=== PATIENT | female | born 1955 | race Caucasian/White ===

== ENCOUNTER 2017-03-05 10:30 | Inpatient (IN) | payer BC ==
[2017-03-19] MEDS ORDERED: FAMOTIDINE 20MG TABLET PO ONE (06:00)
[2017-03-19] MEDS ORDERED: METOCLOPRAMIDE 10 MG TABLET PO ONE (06:00)
[2017-03-19] MEDS ORDERED: MECLIZINE 25 MG TABLET PO ONE (06:00)
[2017-03-19] MEDS ORDERED: VANCOMYCIN HCL 1,000 MG in 0.9 % SODIUM CHLORIDE 250ML 250 ML IVPB ONE (06:00)
[2017-03-19 08:13] LABS: ABO GROUP O; ANTIBODY SCREEN NEGATIVE (NEGATIVE); RH TYPE POSITIVE
[2017-03-19] MEDS ORDERED: 0.9 % SODIUM CHLORIDE 10 ML VIAL IVP ONE (10:02)
[2017-03-19] MEDS ORDERED: TRANEXAMIC ACID 1,000 MG/10 ML ML IV ONE (10:02)
[2017-03-19] MEDS ORDERED: TRAMADOL HCL 50 MG TABLET PO PRN (10:45)
[2017-03-19] MEDS ORDERED: ZOLPIDEM TARTRATE 5 MG TABLET PO PRN (10:45)
[2017-03-19] MEDS ORDERED: HYDROMORPHONE HCL 1MG/ML **SYRINGE IM PRN (10:45)
[2017-03-19] MEDS ORDERED: MAGNESIUM HYDROXIDE 30 ML UDC PO PRN (10:45)
[2017-03-19] MEDS ORDERED: KETOROLAC 30 MG/ML VIAL IVP PRN ×2 (10:45)
[2017-03-19] MEDS ORDERED: AL HYDROX/MAG HYDROX 30ML UD PO PRN (10:45)
[2017-03-19] MEDS ORDERED: ACETAMINOPHEN 325 MG TAB PO PRN (10:45)
[2017-03-19] MEDS ORDERED: BISACODYL 10 MG SUPP RC PRN (10:45)
[2017-03-19] MEDS ORDERED: HYDROMORPHONE HCL 2 MG/ML VIAL IM PRN (10:45)
[2017-03-19] MEDS ORDERED: NALOXONE 0.4 MG/1 ML VIAL IVP PRN (10:45)
[2017-03-19] MEDS ORDERED: OXYCODONE HCL 5 MG TABLET PO PRN (13:01)
[2017-03-19] MEDS ORDERED: *PACU ONLY* KETAMINE HCL 10 MG/ML (20ML) VIAL IV ONE (14:00)
[2017-03-19] MEDS ORDERED: KETOROLAC 30 MG/ML VIAL IVP ONE (14:00)
[2017-03-19] MEDS ORDERED: HYDROMORPHONE HCL 2 MG/ML VIAL IV ONE (14:00)
[2017-03-19] MEDS ORDERED: PROPOFOL 10 MG/ML VIAL IV ONE (14:00)
[2017-03-19] MEDS ORDERED: FENTANYL PF 100MCG/2ML VIAL IV ONE (14:00)
[2017-03-19] MEDS ORDERED: MIDAZOLAM HCL 2MG/2ML VIAL IV ONE (14:00)
[2017-03-19] MEDS: ONDANSETRON HCL IV 4 MG/2 ML VIAL IVP PRN ×2 (14:24→18:03)
--- NOTE | 2017-03-19 14:45 | Rehab Evaluation ---
Patient Information - Patient Information Diagnosis: R knee DJD Ordered Treatment: PT Evaluate and Treat Status: Initial Evaluation Date of Surgery: 03/19/17 Past Medical/Surgical Hx: PAST MEDICAL/SURGICAL HISTORY Past Surgical History T& A; myringotomy; ; SUNIL; left knee arthroscopy; jaw scope (TMJ); colonoscopy x 2. PMH - Respiratory Hx Respiratory Disorders No Hx of URI Yes: 3 weeks over it(90%) PMH - Cardiovascular Hx Cardiovascular Disorders No Exercise Tolerance Good PMH - Neuro Hx Neurological Disorders No PMH - GI Hx Gastrointestinal Disorders No Comment: Hyst 1993 PMH - Hx Genitourinary Disorders No Comment: SUNIL PMH - Endocrine Hx Endocrine Disorders No PMH - Musculoskeletal Hx Musculoskeletal Disorders Yes Hx Arthritis Yes: bilat thumbs; knees PMH - Psych Hx Psychiatric Problems No PMH - Hematology/Oncology Hx Hematology/Oncology No Disorders Premorbid Status: Detail (The patient was independent with mobility and all ADL' s prior to surgery.) Precautions: [place], Other (WBAT on the R LE.) - Time With Patient Total Time Spent With Patient (Min): 30 Treatment Procedures: Detail (Initial Evaluation, gait training) Subjective Information - Subjective Information Per Patient (The patient had no pain complaints. The patient did complain of nausea before sitting up and after walking and vomited x 2. The patient complained of "feeling funny".) Objective Data - Mental Status Patient Orientation: Oriented x3 - Visual Perception Appears within normal limits for therapeutic activities - ROM Not within normal limits (The patient's LE AROM is WNL except for right knee extension is 0, flexion was not formally measured s/p surgery.) - Strength/Tone Not within normal limits (The patient's L LE strength is 4+ to 5/5. The patient 's R LE was not formally tested secondary to s/p surgery, however the patient's strength is functional ( The patient was able to complete a SLR and good quad contraction.) - Bed Mobility Independent (The patient was independent with supine to and from sit transfer.) - Transfers Independent (Independent with sit to and from stand transfer and toilet transfer with use of grab bar.) - Balance Balance Sitting: Good Balance Standing: Good (The patient was able to pull pants up and down without support of walker.) - Sensation Intact - Gait Detail (The patient ambulated with 2 wheeled walker a distance of 80 feet x 1, WBAT on the R LE with assist of 1 to handle IV.) Therapy Assessment - Therapy Assessment Detail (The patient was independent with bed mobility ,transfers and supervision with ambulation. The patient completed HEP of quad sets, ankle pumps and SLR. Feel the patient will progress well with PT goals.) Problem List - Problem List Physical Therapy Problem List: Detail (1) Nonambulatory on stairs 2) Decreased R knee AROM and R LE strength as to be expected following surgery) Goals - Goals Physical Therapy Goals: 1)The patient will be independent with ambulation with assistive device on levels and stairs WBAT on the R LE. 2) The patient will be independent with HEP Prognosis - Prognosis Good Plan - Plan Physical Therapy Plan: PT 1-2 times a day for gait training, transfer training and instruction in HEP until inpatient PT goals are met.
[2017-03-19] MEDS ORDERED: BUPIVACAINE 0.75% W/EPI MPF 30ML VIAL IVP ONE (15:00)
[2017-03-19] MEDS: POTASSIUM CHLORIDE/D5-0.9%NACL 20 MEQ/1,000 ML BAG IV SCH ×2 (18:33→21:47)
[2017-03-19] MEDS: DIPHENHYDRAMINE HCL 25 MG CAPSULE PO PRN (20:02)
[2017-03-19] MEDS: VANCOMYCIN HCL 1,000 MG in 0.9 % SODIUM CHLORIDE 250ML 250 ML IVPB SCH (20:20)
[2017-03-19] MEDS: DOCUSATE SODIUM 100 MG CAPSULE PO SCH (22:00)
[2017-03-20] MEDS: HYDROCODONE/APAP 10/325 TABLET PO PRN ×3 (03:39→12:40)
[2017-03-20] MEDS: POTASSIUM CHLORIDE/D5-0.9%NACL 20 MEQ/1,000 ML BAG IV SCH ×2 (04:33→12:02)
[2017-03-20 06:57] LABS: HEMATOCRIT 34.8 % (35.0-47.0)
[2017-03-20 07:03] LABS: BLOOD UREA NITROGEN 10 mg/dL (8-23); CREATININE 0.6 mg/dL (0.5-0.9); EST GLOMERULAR FILTRATION RATE > 60 mL/min; GLUCOSE,RANDOM 85 mg/dL (74-109)
[2017-03-20] MEDS: VANCOMYCIN HCL 1,000 MG in 0.9 % SODIUM CHLORIDE 250ML 250 ML IVPB SCH (07:27)
--- NOTE | 2017-03-20 08:12 | Operative Note ---
DATE: 03/19/2017. PREOPERATIVE DIAGNOSIS: Endstage arthrosis of the right knee. POSTOPERATIVE DIAGNOSIS: Endstage arthrosis of the right knee. PROCEDURE: Cemented right total knee arthroplasty using [employer] Nephew Rosy II components with a size 5 Oxinium femur, a size 4 stemmed tibial base plate, an 11 mm lipped highly cross linked tibial insert, and a 35 mm all-plastic patella. STAFF SURGEON: Nish Rogel M.D. ANESTHESIA: Spinal. PREPARATION: ChloraPrep. INDIVIDUAL CONSIDERATIONS: None. PROCEDURE: The patient was taken to the operating room and placed supine on the operating table. She had successful induction of a spinal anesthetic. Her right lower extremity was then prepped and draped in the usual fashion. The patient had a midline approach to the knee. The limb was elevated and the tourniquet was inflated to 250 mm Hg. Sharp dissection was carried down through the skin and subcutaneous tissue. Small veins were coagulated with a Bovie. A medial arthrotomy was performed. The patella was everted and the knee was flexed. The patient had bone loss and exposed bone on the medial side. I would say she ground away about a half inch off of her medial femoral condyle. There were also changes in the patellofemoral compartment and spurs laterally. The fat pad was resected. The ACL was sacrificed, and provisional anterior meniscectomies were performed. The capsule was released from the medial proximal tibia. The initial femoral commercial airline pilot hole was then made freehand. The intramedullary femoral cutting jig was placed. It was cut in 7.0 degrees of valgus and adjusted for rotation and secured with pins for a 10-mm resection. The initial transverse cut was then made. The skin guide was placed through the anterior and posterior commercial airline pilot holes. It was found that a size 5 would be appropriate, but I had to translate it anteriorly so as not to notch. The anterior and posterior cuts followed by chamfer cuts were made. Osteophytes were removed. A size 5 trial was placed and was found to fit well. The tibia was brought forward and the remainder of the meniscal remnants were removed with a Bovie. The extra-articular tibial cutting jig was placed. It was cut in neutral with a 3.0 degree AP slope. Care was taken to adjust for rotation and flexion using the extra-articular alignment guide and bony landmarks. It was set for a 9.0 mm resection, off the high lateral side, and secured with pins. When cutting the tibia, care was taken to preserve the PCL insertion on the tibia. Osteophytes were removed, and I found a size 4 would be appropriate. This was adjusted for rotation and secured with pins. With an 11 mm femoral trial, there was excellent motion and stability. Ligamentous balance and rotation alignment were found to be normal. The femoral commercial airline pilot holes were impacted, a triflange tibial stamp was impacted, and these trial components were removed. The patient had a thick patella. Roughly 9.0 mm of bone was removed freehand with an oscillating saw. I could fit a 35 patella. The three commercial airline pilot holes were then drilled. The tourniquet was then let down briefly to get bleeders posteriorly and was then placed back up again. The knee was then thoroughly irrigated out with pulsatile Betadine and saline to remove any visual or palpable debris. The bony surfaces were then dried. A size 4 stemmed tibial baseplate was cemented into place followed by impaction of the 11 mm lipped tibial insert. This was followed by cementing in the size 5 Oxinium femur. This was then followed by cementing in the 35 mm patella. Implant surfaces were compressed. Excess cement was removed and after the cement had set there was excellent motion and stability. Ligamentous balance, rotation, alignment, and patellofemoral tracking were normal. No lateral release was required. Again, thorough irrigation. The tourniquet was then let down. Hemostasis was obtained with a Bovie. A total of 30 cc of 0.5% Marcaine with epinephrine were used to infiltrate the skin and subcutaneous tissue. The capsule was then closed with a running #2 Quill, subcutaneous was closed in layers with running 0 Quill, and the skin was closed with allison. The patient had received 1.0 gm of tranexamic acid IV preoperatively. We mixed 1.0 gm of tranexamic acid with 30 mL of saline injected it into the knee through a sterile 18-gauge needle. A sterile bulky compressive Aquacel type dressing was applied. The patient tolerated the procedure well. Needle and sponge counts were correct. Estimated blood loss was minimal. She was taken back to the recovery room in good condition. There were no complications. Job Number: [id number] cc: Dr. Juve HUBBARD
[2017-03-20] MEDS: DOCUSATE SODIUM 100 MG CAPSULE PO SCH (09:44)
[2017-03-20] MEDS ORDERED: ESTRADIOL 1 MG PO SCH (10:00)
[2017-03-20] MEDS ORDERED: FERROUS SULFATE 325 MG TAB PO SCH (10:00)
[2017-03-20] MEDS ORDERED: RIVAROXABAN 10 MG TABLET PO SCH (10:00)
[2017-03-20] MEDS: DIPHENHYDRAMINE HCL 25 MG CAPSULE PO PRN (10:43)
--- NOTE | 2017-03-20 11:33 | Physical Therapy Tx Note ---
Physical Therapy Tx Note - Treatment Note Tolerated: Good (Patient doing extremely well this am, able to move sit to stand independently, walk with FWW to bathroom and into beach without any difficulty. Able to ambulate down three steps then pivot around and ambulate up three steps with rail and folded walker for safety then did it again with single point cane easily.) Total Time Spent With Patient: 30 Physical Therapy Tx Note: Detail (Patient seen bedside, seated in chair, sit to stand independently with FWW, correct technique, ambulated to bathroom then out into beach about 50 feet to stairs, ambulated down three steps using folded walker, rail for support with correct technique, pivoted around and walked back up three steps nearly independently then ambulated 75 more feet with FWW and CGA only, WBAT right. Sat in wheelchair on the way back to room and PT retrieved her cane then patient ambulated down three steps again and pivoted around with cane and back up three steps with proper technique and good tolerance, CGA only, WBAT right. Ambulated back to room and into bed independently, performed knee exercises with verbal cues only, reattached cryocuff, compressive stockings, moved tray table and call light close.) Physical Therapy Problem List: Detail (1) Nonambulatory on stairs 2) Decreased R knee AROM and R LE strength as to be expected following surgery) Physical Therapy Goals: 1)The patient will be independent with ambulation with assistive device on levels and stairs WBAT on the R LE. 2) The patient will be independent with HEP Prognosis: Good (Patient doing extremely well and should be able to be discharged this afternoon if doctor and nursing are agreeable. If she is still in hospital this afternoon, we will work on gait to increase endurance.) Physical Therapy Plan: PT 1-2 times a day for gait training, transfer training and instruction in HEP until inpatient PT goals are met. Day after surgery: if patient still here this afternoon, will work on endurance gait with FWW in beach as patient wants.
[2017-03-20] MEDS ORDERED: FLU VAC QS 2017-18 (INPT, 6MO+) 60MCG/0.5ML IM ONE (12:55)
[2017-03-20] MEDS ORDERED: PNEUM 13-VAL/PF 0.5 ML IM ONE (12:56)
--- NOTE | 2017-03-20 15:25 | Rehab Evaluation ---
Patient Information - Patient Information Diagnosis: R knee DJD Ordered Treatment: OT Evaluate and Treat Status: Initial Evaluation Surgery: Yes (Right TKA) Date of Surgery: 03/19/17 Past Medical/Surgical Hx: PAST MEDICAL/SURGICAL HISTORY Past Surgical History T& A; myringotomy; ; SUNIL; left knee arthroscopy; jaw scope (TMJ); colonoscopy x 2. PMH - Respiratory Hx Respiratory Disorders No Hx of URI Yes: 3 weeks over it(90%) PMH - Cardiovascular Hx Cardiovascular Disorders No Exercise Tolerance Good PMH - Neuro Hx Neurological Disorders No PMH - GI Hx Gastrointestinal Disorders No Comment: Hyst 1993 PMH - Hx Genitourinary Disorders No Comment: SUNIL PMH - Endocrine Hx Endocrine Disorders No PMH - Musculoskeletal Hx Musculoskeletal Disorders Yes Hx Arthritis Yes: bilat thumbs; knees PMH - Psych Hx Psychiatric Problems No PMH - Hematology/Oncology Hx Hematology/Oncology No Disorders Premorbid Status: Detail (Pt lives with spouse in a 1 story house with basement , she generally stays on the 1st floor. She has 3 steps with 1 railing at the entrance. She has a walk in shower with a seat, no grab bar, she has both a standard and elevated toilet seat, no grab bars. She and spouse share home mgmt and laundry, she is responsible for meal prep and has food in the freezer and friends will be assisting. 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 The patient was independent with mobility and all ADL's prior to surgery.) Precautions: [place], Other (WBAT on the R LE.) - Time With Patient Total Time Spent With Patient (Min): 40 Treatment Procedures: Detail (OT eval low complexity) Subjective Information - Subjective Information Per Patient Objective Data - Pain Pain Present: Yes (10/20) - Mental Status Patient Orientation: Oriented x3 - Visual Perception Appears within normal limits for therapeutic activities - ROM Within normal limits (Enoc UE AROM WNL) - Strength/Tone Within normal limits (Enoc UE strength WNL) - Coordination Appears within normal limits for therapeutic activities - Bed Mobility Independent (Ind with supine to sit) - Transfers Independent (Ind with sit to stand from EOB and chair.) - Balance Balance Sitting: Good Balance Standing: Good - Sensation Intact - Gait Detail (Pt ambulating in room with walker Indly.) - ADL's/IADL's Detail (Pt educated re: modified dressing techniques. She was able to demonstrate partial sponge bathing and total body dressing Indly.) Therapy Assessment - Therapy Assessment Detail (Pt safe and Ind with self care activities and functional mobility.) Problem List - Problem List Physical Therapy Problem List: Detail (1) Nonambulatory on stairs 2) Decreased R knee AROM and R LE strength as to be expected following surgery) Occupational Therapy Problem List: Detail (No current OT problems identified.) Goals - Goals Physical Therapy Goals: 1)The patient will be independent with ambulation with assistive device on levels and stairs WBAT on the R LE. 2) The patient will be independent with HEP Occupational Therapy Goals: No OT goals identified. Prognosis - Prognosis Good Plan - Plan Physical Therapy Plan: PT 1-2 times a day for gait training, transfer training and instruction in HEP until inpatient PT goals are met. Day after surgery: if patient still here this afternoon, will work on endurance gait with FWW in beach as patient wants. Occupational Therapy Plan: No further IP OT recommended. Thank you for this referral.
--- NOTE | 2017-03-24 15:55 | Discharge Summary ---
DATE OF ADMISSION: 03/19/17 DATE OF DISCHARGE: 03/20/17 DATE OF SURGERY: 03/19/17 HISTORY: Aria is a delightful 62-year-old female who presents with end-stage arthrosis of her right knee. She was admitted after right total knee arthroplasty. Postoperatively, she did great. Her hospital course was unremarkable. Discharge hemoglobin was 11. She did not require transfusions. DISCHARGE INSTRUCTIONS: The plan is to discharge her to home in the care of her family. Home PT and Visiting Nurse have been arranged. Sutures will be removed by the Visiting Nurse in two weeks. She will follow-up in my office in four weeks. She will be given Xarelto for two weeks for DVT prophylaxis and [place] for pain. FINAL DIAGNOSIS/PRIMARY DIAGNOSIS: END-STAGE ARTHROSIS OF THE RIGHT KNEE. OPERATIONS AND PROCEDURES: CEMENTED RIGHT TOTAL KNEE ARTHROPLASTY. JOB NUMBER: [id number] MTDD
== END 2017-03-20 12:54 | disposition home health service (06) | DRG 470 ==
LOC: MEDSURG 03-19 06:45
PROVIDERS: ADMIT Orthopaedic Surgery; ATTEND Orthopaedic Surgery
PROC: 0SRC069 Replacement of Right Knee Joint with Oxidized Zirconium on Polyethylene Synthetic Substitute, Cemented, Open Approach (ICD-10-PCS; principal; 2017-03-19 09:00)
DX: M17.11 Unilateral primary osteoarthritis, right knee (principal)
CPT/HCPCS: 80048; 85014; 85018; 86850; 86900; 86901; 90670; 90686; 97110; 97116; 97165; J1885; J2405; J3480; J3490; J7050

== ENCOUNTER 2017-06-04 06:52 | Inpatient (IN) | payer BC ==
[~2017-06-04 06:52] MED LIST: CELECOXIB 100 MG CAPSULE PO ONE; FAMOTIDINE 20MG TABLET PO ONE; MECLIZINE 25 MG TABLET PO ONE; METOCLOPRAMIDE 10 MG TABLET PO ONE; VANCOMYCIN HCL 1,000 MG in DEXTROSE 5 % IN WATER 250 ML IVPB ONE
[2017-06-04 07:44] LABS: ABO GROUP O; ANTIBODY SCREEN NEGATIVE (NEGATIVE); RH TYPE POSITIVE
[2017-06-04] MEDS ORDERED: ZOLPIDEM TARTRATE 5 MG TABLET PO PRN (10:51)
[2017-06-04] MEDS ORDERED: DIPHENHYDRAMINE HCL 25 MG CAPSULE PO PRN (10:51)
[2017-06-04] MEDS ORDERED: ONDANSETRON HCL IV 4 MG/2 ML VIAL IVP PRN (10:51)
[2017-06-04] MEDS ORDERED: AL HYDROX/MAG HYDROX 30ML UD PO PRN (10:51)
[2017-06-04] MEDS ORDERED: ACETAMINOPHEN 325 MG TAB PO PRN (10:51)
[2017-06-04] MEDS ORDERED: ACETAMINOPHEN W/ CODEINE 300MG/60MG TABLET PO PRN ×2 (10:51)
[2017-06-04] MEDS ORDERED: MAGNESIUM HYDROXIDE 30 ML UDC PO PRN (10:51)
[2017-06-04] MEDS ORDERED: HYDROMORPHONE HCL 2 MG/ML VIAL IM PRN (10:51)
[2017-06-04] MEDS ORDERED: KETOROLAC 30 MG/ML VIAL IVP PRN ×2 (10:51)
[2017-06-04] MEDS ORDERED: BISACODYL 10 MG SUPP RC PRN (10:51)
[2017-06-04] MEDS ORDERED: HYDROCODONE/APAP 10/325 TABLET PO PRN (10:51)
[2017-06-04] MEDS ORDERED: NALOXONE 0.4 MG/1 ML VIAL IVP PRN (10:51)
[2017-06-04] MEDS ORDERED: CEFAZOLIN 2 Gram 2 GM/50 ML BAG IVPB SCH (11:00)
[2017-06-04] MEDS: ESTRADIOL 1 MG PO SCH (12:41)
[2017-06-04] MEDS: HYDROCODONE/APAP 10/325 TABLET PO PRN (12:50)
[2017-06-04] MEDS ORDERED: TRANEXAMIC ACID 1,000 MG/10 ML ML IV ONE ×2 (13:14)
[2017-06-04] MEDS ORDERED: 0.9 % SODIUM CHLORIDE 10 ML VIAL IVP ONE (13:14)
[2017-06-04] MEDS ORDERED: BUPIVACAINE 0.75% W/EPI MPF 30ML VIAL IVP ONE (13:14)
[2017-06-04] MEDS ORDERED: 0.9 % SODIUM CHLORIDE 100ML BAG IV ONE (13:14)
[2017-06-04] MEDS ORDERED: METHYLPREDNISOLONE 40MG/VIAL IM ONE (13:18)
[2017-06-04] MEDS: OXYCODONE HCL 5 MG TABLET PO PRN (13:56)
--- NOTE | 2017-06-04 15:23 | Rehab Evaluation ---
Patient Information - Patient Information Diagnosis: DJD L Knee Status: Initial Evaluation Surgery: Yes (L TKA) Date of Surgery: 06/04/17 Past Medical/Surgical Hx: PAST MEDICAL/SURGICAL HISTORY Past Surgical History right total knee arthroplasty 03-19-17 T& A; myringotomy; ; SUNIL; left knee arthroscopy; jaw scope (TMJ); colonoscopy x 2. PMH - Respiratory Hx Respiratory Disorders No PMH - Cardiovascular Hx Cardiovascular Disorders No Exercise Tolerance Good PMH - Neuro Hx Neurological Disorders No PMH - GI Hx Gastrointestinal Disorders No Comment: Hyst 1993 PMH - Hx Genitourinary Disorders No Comment: SUNIL PMH - Endocrine Hx Endocrine Disorders No Hx Diabetes No Hx Thyroid Disease No PMH - Musculoskeletal Hx Musculoskeletal Disorders Yes Hx Arthritis Yes: bilat thumbs; knees Hx Back Injury No Hx Fibromyalgia No Hx Musculoskeletal Disease No Hx Osteoporosis No PMH - Psych Hx Psychiatric Problems No PMH - Hematology/Oncology Hx Hematology/Oncology No Disorders Social History: Detail (The patient states that she lives in a ranch style home with her . She states that she has 3 steps to enter the home without railings, but with a wall that she is able to use for balance. She states that she has a walk-in shower with a removable shower head and she has a shower seat. She says that she has a commode that she will be using once she arrives home. She says she does not have any grab bars in her bathroom.) - Time With Patient Total Time Spent With Patient (Min): 35 Treatment Procedures: Detail (PT Initial Evaluation) Subjective Information - Subjective Information Per Patient (Said that she is feeling okay right now. She says that she doesn't have any pain, but feels a little light-headed/dizzy.) Objective Data - Pain Pain Present: No Pain Intensity: 0 Pain Scale Used: Numeric (1 - 10) - Mental Status Patient Orientation: Oriented x3 - ROM Other (Deferred due to patient fatigue after ambulation.) - Strength/Tone Within normal limits (Not formally tested with manual muscle testing, but was able complete transfers, bed mobility, and ambulation safely.) - Bed Mobility Independent (Able to transfer from supine to sit and was able to scoot in bed independently.) - Transfers Independent (Sit to stand - independent Toilet transfer - independent) - Balance Balance Sitting: Good Balance Standing: Good (The patient was able to put on her underwear while standing without difficulty.) - Gait Detail (The patient was able to ambulate with 2WW WBAT on L with supervision for 54 feet x2 (from her room to nurse's station).) - ADL's/IADL's Detail (Patient was independent in brushing her teeth in bed.) Therapy Assessment - Therapy Assessment Detail (The patient tolerated treatment well today. The patient was able to ambulate safely, showed good standing and sitting balance, and had minimal pain at initial evaluation. However, after ambulation the patient requested to use the restroom. She was able to safely transfer, but did vomit while on the toilet. She said that she felt much relief after vomiting. The patient should progress well with therapy and reach her established goals.) Problem List - Problem List Physical Therapy Problem List: Detail (1) Decreased ROM and strength in L LE as to be expected s/p surgery 2) Inability to ascend/descend stairs) Goals - Goals Physical Therapy Goals: 1) The patient will be able to ascend/descend 3 stairs with supervision. 2) Independent with HEP. 3) Assess ROM of bilateral knees Prognosis - Prognosis Good Plan - Plan Physical Therapy Plan: The patient will be seen 1-2 times per day until established PT goals are achieved for gait training, instruction in HEP, and monitoring R LE ROM s/p LOPEZ.
[2017-06-04] MEDS ORDERED: SCOPOLAMINE 1 PATCH TDSY TD ONE (15:45)
[2017-06-04] MEDS: POTASSIUM CHLORIDE/D5-0.9%NACL 20 MEQ/1,000 ML BAG IV SCH ×2 (18:56→22:49)
[2017-06-04] MEDS: VANCOMYCIN HCL 1,000 MG in DEXTROSE 5 % IN WATER 250 ML IVPB SCH ×2 (19:51)
[2017-06-04] MEDS: TRAMADOL HCL 50 MG TABLET PO PRN (21:20)
[2017-06-04] MEDS: DOCUSATE SODIUM 100 MG CAPSULE PO SCH (21:20)
[2017-06-05] MEDS: TRAMADOL HCL 50 MG TABLET PO PRN ×2 (03:11→06:48)
[2017-06-05] MEDS: POTASSIUM CHLORIDE/D5-0.9%NACL 20 MEQ/1,000 ML BAG IV SCH ×2 (03:13→11:29)
--- NOTE | 2017-06-05 03:32 | Operative Note ---
DATE: 06/04/2017. PREOPERATIVE DIAGNOSIS: ENDSTAGE ARTHROSIS OF THE LEFT KNEE. POSTOPERATIVE DIAGNOSIS: ARTHROFIBROSIS OF THE RIGHT KNEE. PROCEDURE: 1. CEMENTED LEFT TOTAL KNEE ARTHROPLASTY USING [employer]HEW VIPUL COMPONENTS WITH A SIZE 4 OXINIUM FEMUR, SIZE 3 STEMMED TIBIAL BASEPLATE, A 9.0 MM LIPPED HIGHLY CROSSLINKED TIBIAL INSERT, AND A 32 MM ALL-PLASTIC PATELLA. 2. RIGHT KNEE MANIPULATION UNDER ANESTHESIA. 3. RIGHT KNEE INJECTION. STAFF SURGEON: Nish Rogel M.D. ANESTHESIA: Spinal. PREPARATION: ChloraPrep. INDIVIDUAL CONSIDERATIONS: None. PROCEDURE: The patient was taken to the operating room and placed supine on the operating table. She had successful induction of a general anesthetic. After the induction, I went ahead and manipulated the right knee at about 90 degrees and felt a solid endpoint. I was easily able to manipulate her to about 130 degrees of flexion. She had full extension. I then prepped her laterally with ChloraPrep and injected her knee sterilely through an 18-gauge needle with 12 mL of 0.75% Marcaine with epinephrine and 40 mg of Depo Medrol. A Band Aid was applied. Her left knee was then prepped and draped in the usual fashion. The patient had a midline approach to the knee. The limb was elevated and the tourniquet was inflated to 300 mm Hg. Sharp dissection was carried down through the skin and subcutaneous tissue. Small veins were coagulated with a Bovie. A medial arthrotomy was performed. The patella was everted and the knee was flexed. She had exposed bone in the medial patellofemoral compartments. The fat pad was resected, the anterior cruciate ligament was sacrificed, and provisional anterior meniscectomies were performed. The capsule was released from the medial proximal tibia. The initial femoral pilot boat deckhand hole was then made freehand. The intramedullary femoral cutting jig was placed. It was cut in 7.0 degrees of valgus and adjusted for rotation and secured with pins for a 10-mm resection. The initial transverse cut was then made. The skin guide was placed with the anterior and posterior cutting jig. It was found that a size 4 would be appropriate, but I had to translate it anteriorly 2.0 mm using the guide. The anterior and posterior cuts followed by chamfer cuts were made. Osteophytes were removed. A size 4 trial was placed and was found to fit well. The tibia was brought forward and the remainder of the meniscal remnants were removed with a Bovie. The extra-articular tibial cutting jig was placed. It was cut in neutral with a 3.0 degree AP slope. Care was taken to adjust for rotation and flexion using the extra-articular alignment guide and bony landmarks. It was set for a 9.0 mm resection, keyed off the high lateral side, and secured with pins. When cutting the tibia, care was taken to preserve the posterior cruciate ligament insertion on the tibia. After removing osteophytes , I was able to easily fit a size 3. It was adjusted for rotation and secured with pins. With a 9.0 mm femoral trial, there was excellent motion and stability. Ligamentous balance and rotation alignment were found to be normal. The femoral pilot boat deckhand holes were impacted, a triflange tibial stamp was impacted, and these trial components were removed. The tourniquet was then let down. Hemostasis was obtained with a Bovie. I also debrided the posterior compartment with a Bovie. The tourniquet was placed back up again. The patella was cut freehand, taking roughly 9.0 mm of bone compensating for bone loss and cartilage. I was easily able to fit a 32 patella, and three pilot boat deckhand holes were then drilled. The knee was then thoroughly irrigated out with pulsatile Betadine and saline to remove any visual or palpable debris. The bony surfaces were then dried. A size 3 stemmed tibial baseplate was cemented into place followed by impaction of the 9.0 mm lipped tibial insert. This was followed by cementing in the size 4 Oxinium femur. This was then followed by cementing in the 32 mm all-plastic patella. Implant surfaces were compressed. Excess cement was removed and after the cement had set there was excellent motion and stability. Ligamentous balance, rotation, alignment, and patellofemoral tracking were normal. No lateral release was required. Again thorough irrigation. The tourniquet was let down. Hemostasis was obtained with a Bovie. The soft tissue and periosteum were infiltrated with 30 mL of 0.5% Marcaine with epinephrine. The capsule was then closed with a running #2 Quill, subcutaneous was closed in layers with running 0 Quill, and the skin was closed with allison. A total of 1.0 gm of tranexamic acid had been given to her preoperatively, and then we mixed 1.0 gm with 30 mL of saline and injected it into the knee through a sterile 18-gauge needle. A sterile bulky compressive Aquacel type dressing was applied. The patient tolerated the procedure well. Needle and sponge counts were correct. Estimated blood loss was minimal. She was taken back to recovery in good condition. There were no complications. JOB NUMBER: [id number] cc: Christiano Farley M.D. MTDD
[2017-06-05 06:38] LABS: HEMATOCRIT 30.5 % (35.0-47.0); HEMOGLOBIN 9.7 gm/dl (11.6-16.0)
[2017-06-05 06:50] LABS: BLOOD UREA NITROGEN 9 mg/dL (8-23); CREATININE 0.5 mg/dL (0.5-0.9); EST GLOMERULAR FILTRATION RATE > 60 mL/min; GLUCOSE,RANDOM 116 mg/dL (74-109)
[2017-06-05] MEDS: VANCOMYCIN HCL 1,000 MG in DEXTROSE 5 % IN WATER 250 ML IVPB SCH ×2 (07:36)
[2017-06-05] MEDS: HYDROCODONE/APAP 10/325 TABLET PO PRN (07:58)
[2017-06-05] MEDS: OXYCODONE HCL 5 MG TABLET PO PRN ×2 (09:28→14:00)
[2017-06-05] MEDS: DOCUSATE SODIUM 100 MG CAPSULE PO SCH (09:29)
[2017-06-05] MEDS: ESTRADIOL 1 MG PO SCH (09:30)
--- NOTE | 2017-06-05 09:53 | Physical Therapy Tx Note ---
Physical Therapy Tx Note - Treatment Note Tolerated: Good Total Time Spent With Patient: 30 Physical Therapy Tx Note: Detail (The patient was in bed upon arrival. The patient was able to transfer from supine to sit independently, and transfer from sit to stand independently. The patient's AROM of her right knee was measure upon getting up from bed, and reached 85 degrees. The patient ambulated from her room to the nurse's station with a 2WW using WBAT on the L and supervision. The patient was able to ascend/descend 3 stairs with verbal cues for the lead leg in both directions, but was able to complete the skill with supervision only. She ambulated back to her room from the nurse's station. The patient's HEP of glut. sets, quad sets, hamstring sets, and straight leg was reviewed, but was unable to complete the straight leg raise. The patient is aware that the use of a leg strap is available. After exercise, her AROM on the R knee in flexion reached 91 degrees, and on the L flexion reached 71 degrees. Extension was not formally measured. The patient has met all of her inpatient PT goals and is able to be discharged from inpatient PT.) Physical Therapy Problem List: Detail (1) Decreased ROM and strength in L LE as to be expected s/p surgery 2) Inability to ascend/descend stairs) Physical Therapy Goals: 1) The patient will be able to ascend/descend 3 stairs with supervision - MET. 2) Independent with HEP - MET. 3) Assess ROM of bilateral knees - MET Prognosis: Good Physical Therapy Plan: PT goals have been met, patient will be discharged from inpatient PT, and will be completing outpatient therapy starting on 06/07.
[2017-06-05] MEDS ORDERED: MULTIVITAMINS/MINERALS TABLET PO SCH (10:00)
[2017-06-05] MEDS ORDERED: CALCIUM CARB/VITAMIN D 500MG/200IU PO SCH (10:00)
[2017-06-05] MEDS ORDERED: FERROUS SULFATE 325 MG TAB PO SCH (10:00)
[2017-06-05] MEDS ORDERED: ASPIRIN 81 MG TABEC PO SCH (10:00)
[2017-06-05] MEDS ORDERED: RIVAROXABAN 10 MG TABLET PO SCH (10:00)
--- NOTE | 2017-06-05 10:51 | Rehab Evaluation ---
Patient Information - Patient Information Diagnosis: DJD L Knee Ordered Treatment: OT Evaluate and Treat Status: Initial Evaluation Surgery: Yes (L TKA) Date of Surgery: 06/04/17 Past Medical/Surgical Hx: PAST MEDICAL/SURGICAL HISTORY Past Surgical History right total knee arthroplasty 03-19-17 T& A; myringotomy; ; SUNIL; left knee arthroscopy; jaw scope (TMJ); colonoscopy x 2. PMH - Respiratory Hx Respiratory Disorders No PMH - Cardiovascular Hx Cardiovascular Disorders No Exercise Tolerance Good PMH - Neuro Hx Neurological Disorders No PMH - GI Hx Gastrointestinal Disorders No Comment: Hyst 1993 PMH - Hx Genitourinary Disorders No Comment: SUNIL PMH - Endocrine Hx Endocrine Disorders No Hx Diabetes No Hx Thyroid Disease No PMH - Musculoskeletal Hx Musculoskeletal Disorders Yes Hx Arthritis Yes: bilat thumbs; knees Hx Back Injury No Hx Fibromyalgia No Hx Musculoskeletal Disease No Hx Osteoporosis No PMH - Psych Hx Psychiatric Problems No PMH - Hematology/Oncology Hx Hematology/Oncology No Disorders Social History: Detail (The patient states that she lives in a ranch style home with her . She states that she has 3 steps to enter the home without railings, but with a wall that she is able to use for balance. She states that she has a walk-in shower with a removable shower head and she has a shower seat. She says that she has a commode that she will be using once she arrives home. She says she does not have any grab bars in her bathroom although her tub seat has handles. She is normally responsible for home mgmt, meal prep, laundry tasks but her sister and spouse will be assisting after discharge. She has a 2 wheeled walker, sock aid and leg arch support maker.) Precautions: [place], Fall - Time With Patient Total Time Spent With Patient (Min): 30 Treatment Procedures: Detail (OT eval low complexity) Subjective Information - Subjective Information Per Patient Objective Data - Pain Pain Present: Yes (10/20 left knee) - Mental Status Patient Orientation: Oriented x3 - Visual Perception Appears within normal limits for therapeutic activities - ROM Within normal limits (Enoc UE AROM WNL) - Strength/Tone Within normal limits (Enoc UE strength WNL) - Coordination Appears within normal limits for therapeutic activities - Bed Mobility Independent (Ind with supine to sit, required very minimal assist for lifting leg back into bed due to fatigue.) - Transfers Independent - Balance Balance Sitting: Good Balance Standing: Good - Sensation Intact - ADL's/IADL's Detail (Pt able to demonstrate Ind with total body dressing including linus sock. Reviewed modified dressing technique, pt was able to demonstrate Indly.) Therapy Assessment - Therapy Assessment Detail (Pt demonstrates Ind with total body dressing, she has no concerns with return home as she has support from spouse and all appropriate equipment.) Problem List - Problem List Physical Therapy Problem List: Detail (1) Decreased ROM and strength in L LE as to be expected s/p surgery 2) Inability to ascend/descend stairs) Occupational Therapy Problem List: Detail (No OT problems identified.) Goals - Goals Physical Therapy Goals: 1) The patient will be able to ascend/descend 3 stairs with supervision - MET. 2) Independent with HEP - MET. 3) Assess ROM of bilateral knees - MET Occupational Therapy Goals: No current OT goals identified. Prognosis - Prognosis Good Plan - Plan Physical Therapy Plan: PT goals have been met, patient will be discharged from inpatient PT, and will be completing outpatient therapy starting on 06/07. Occupational Therapy Plan: No further OT recommended at this time. Thank you for the referral.
[2017-06-05] MEDS ORDERED: MIDAZOLAM HCL 2MG/2ML VIAL IV ONE (14:24)
[2017-06-05] MEDS ORDERED: *PACU ONLY* KETAMINE HCL 10 MG/ML (20ML) VIAL IV ONE (14:24)
[2017-06-05] MEDS ORDERED: HYDROMORPHONE HCL 2 MG/ML VIAL IV ONE (14:24)
[2017-06-05] MEDS ORDERED: PROPOFOL 10 MG/ML VIAL IV ONE (14:24)
[2017-06-05] MEDS ORDERED: FENTANYL PF 100MCG/2ML VIAL IV ONE (14:24)
--- NOTE | 2017-06-05 19:15 | Discharge Summary ---
DATE OF ADMISSION: 06/04/2017 DATE OF DISCHARGE: 06/05/2017 DATE OF SURGERY: 06/04/2017 HISTORY: Aria is a delightful 62-year-old female who presents with end-stage arthrosis of her left knee and arthrofibrosis of her right knee. She was admitted after a left total knee arthroplasty and manipulation and injection of the right knee. Postoperatively, she did extremely well. She was a little bit nauseated but that resolved within 24 hours. Postoperatively day #1, she was doing great. She was independent. She was taking [place] supplemented occasionally with OxyIR for pain. Her discharge hemoglobin was 9.7. She did not require transfusion. DISCHARGE INSTRUCTIONS: The plan is to discharge her to home in the care of her family. She is going to do outpatient physical therapy. She will start physical therapy this week. She will take Xarelto for DVT prophylaxis and I will give her [place] and OxyIR for pain. She will see me back in the office in two weeks for suture removal. FINAL DIAGNOSIS/PRIMARY DIAGNOSIS: END-STAGE ARTHROSIS OF THE LEFT KNEE. SECONDARY DIAGNOSES: 1. ARTHROFIBROSIS OF THE LEFT KNEE. 2. ACUTE OPERATIVE BLOOD LOSS ANEMIA. OPERATIONS AND PROCEDURES: 1. CEMENTED LEFT TOTAL KNEE ARTHROPLASTY. 2. RIGHT KNEE MANIPULATION. 3. RIGHT KNEE INJECTION. Discharge condition was good. JOB NUMBER: [id number] MTDD
== END 2017-06-05 14:25 | disposition home or self-care (01) | DRG 470 ==
LOC: MEDSURG 06:52
PROVIDERS: ADMIT Orthopaedic Surgery; ATTEND Orthopaedic Surgery
PROC: 0SNCXZZ Release Right Knee Joint, External Approach (ICD-10-PCS; 2017-06-04)
PROC: 3E0U33Z Introduction of Anti-inflammatory into Joints, Percutaneous Approach (ICD-10-PCS; 2017-06-04)
PROC: 3E0U3BZ Introduction of Anesthetic Agent into Joints, Percutaneous Approach (ICD-10-PCS; 2017-06-04)
PROC: 0SRD069 Replacement of Left Knee Joint with Oxidized Zirconium on Polyethylene Synthetic Substitute, Cemented, Open Approach (ICD-10-PCS; principal; 2017-06-04 09:00)
DX: M17.12 Unilateral primary osteoarthritis, left knee (principal); D62 Acute posthemorrhagic anemia; M23.8X1 Other internal derangements of right knee
CPT/HCPCS: 80048; 85014; 85018; 86850; 86900; 86901; 97110; 97116; 97165; C1776; J1030; J2405; J3480; J7060